=== PATIENT | male | born 1945 | race Caucasian/White ===

== ENCOUNTER → 2016-02-20 | Outpatient (CLI) | payer OTHER ==
[~2016-02-20] MED LIST: AMLO-110 PO; ASPCH81X PO; ATOR10TA88 PO; CARV25TA PO; CHOL100010 PO; CYAN100020 PO; LOSA100T26 PO; TERA5CAP PO
[2016-02-20 16:55] LABS: BLOOD UREA NITROGEN 13 mg/dl (7-18); BUN/CREATININE RATIO 12.9 (10-20); CALCIUM 9.4 mg/dl (8.5-10.1); CARBON DIOXIDE 24 mmol/L (21-32); CHLORIDE 109 mmol/L (98-107); GLUCOSE 109 mg/dl (70-99); POTASSIUM 4.5 mmol/L (3.5-5.1); SODIUM 143 mmol/L (136-145)
[2016-02-21 06:46] LABS: ESTIMATED AVERAGE GLUCOSE 97 mg/dl; HA1C FLAG Normal (Normal)
== END | disposition home or self-care (01) ==
LOC: C.LABBFT 16:21
PROVIDERS: ATTEND Internal Medicine
DX: R73.01 Impaired fasting glucose (principal); E53.8 Deficiency of other specified B group vitamins; E55.9 Vitamin D deficiency, unspecified

== ENCOUNTER → 2016-07-01 | Outpatient (CLI) | payer OTHER ==
[~2016-07-01] MED LIST changes: +ATOR10TA82 PO; -ATOR10TA88 PO; -LOSA100T26 PO; +LOSA100T33 PO
[2016-07-01 17:43] LABS: PROSTATE SPECIFIC ANTIGEN 1.53 ng/ml (0.000-4.000)
== END | disposition home or self-care (01) ==
LOC: C.LABBFT 11:11
PROVIDERS: ATTEND Physician Assistant Medical
DX: E78.5 Hyperlipidemia, unspecified (principal); N40.0 Benign prostatic hyperplasia without lower urinary tract symptoms

== ENCOUNTER → 2016-11-10 | Outpatient (CLI) | payer OTHER ==
[~2016-11-10] MED LIST changes: -ATOR10TA82 PO; +ATOR10TA88 PO; +LOSA100T26 PO; -LOSA100T33 PO
--- NOTE | 2016-11-10 10:43 | DIAGNOSTIC IMAGING REPORT ---
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 FINDINGS: Right testis: 3.9 x 2.5 x 3.4 cm. There are no intratesticular masses. Normal color flow. Small hydrocele. Dilated rete testes. There are few slightly complex extratesticular cysts with the dominant lesion measuring 4.8 x 3.5 x 4.2 cm. This favors a spermatocele. Left testis: 4.1 x 3.2 0.1 cm. There are no intratesticular masses. Normal color flow. Small hydrocele. Dilated rete testes. A few small epididymal head cysts with the largest measuring 1 cm. IMPRESSION: 1. Small bilateral hydroceles. 2. There are few complex right extratesticular cysts with the dominant lesion measuring 4.8 x 3.5 x 4.2 cm. This favors a spermatocele. Electronically signed by: Duc Fuentes M.D. 11/10/2016 10:41 AM Dictated Date/Time: 11/10/2016 10:38 AM
== END | disposition home or self-care (01) ==
LOC: C.ULTR 09:57
PROVIDERS: ATTEND Internal Medicine
DX: Q55.29 Other congenital malformations of testis and scrotum (principal); N43.3 Hydrocele, unspecified; N44.2 Benign cyst of testis

== ENCOUNTER → 2016-11-18 | Outpatient (CLI) | payer OTHER ==
[2016-11-18 13:06] LABS: URINE APPEARANCE CLEAR (CLEAR); URINE BILIRUBIN NEG (NEG); URINE COLOR YELLOW; URINE NITRITE NEG (NEG); URINE PH 6.5 (4.5-7.5); URINE SPECIFIC GRAVITY 1.014 (1.000-1.030); UROBILINOGEN NEG (NEG); ZZUR CULT IF INDIC CLEAN CATCH NO
[2016-11-18 13:18] LABS: MANUAL MICROSCOPIC REQUIRED? NO; REVIEW REQ? NO
== END | disposition home or self-care (01) ==
LOC: C.LABBFT 09:24
PROVIDERS: ATTEND Internal Medicine
DX: R35.0 Frequency of micturition (principal)

== ENCOUNTER → 2017-05-11 | Outpatient (CLI) | payer OTHER ==
[~2017-05-11] MED LIST changes: +ATOR10TA82 PO; -ATOR10TA88 PO; -LOSA100T26 PO; +LOSA100T33 PO
[2017-05-11 16:32] LABS: BASO % 0.3 %; BASO ABS # 0.02 K/uL (0-0.2); EOS % 2.5 %; EOS ABS # 0.15 K/uL (0-0.5); HEMATOCRIT 39.5 % (42-52); HEMOGLOBIN 13.9 g/dL (14.0-18.0); IG# 0.12 K/uL (0.00-0.02); LYMPH % 20.5 %; LYMPH ABS # 1.21 K/uL (1.2-3.4); MEAN CORPUSCULAR HEMOGLOBIN 35.5 pg (25-34); MEAN CORPUSCULAR HGB CONC 35.2 g/dl (32-36); MEAN PLATELET VOLUME 10.5 fL (7.4-10.4); NEUT % 57.7 %; NEUT ABS # 3.39 K/uL (1.4-6.5); PLATELET COUNT 165 K/uL (130-400); RED CELL DISTRIBUTION WIDTH CV 13.9 % (11.5-14.5); RED CELL DISTRIBUTION WIDTH SD 51.2 fL (36.4-46.3); WHITE BLOOD COUNT 5.89 K/uL (4.8-10.8)
[2017-05-11 16:48] LABS: ALBUMIN 3.4 gm/dl (3.4-5.0); ALT/SGPT 26 U/L (12-78); AST/SGOT 20 U/L (15-37); BLOOD UREA NITROGEN 17 mg/dl (7-18); CALCIUM 9.3 mg/dl (8.5-10.1); CARBON DIOXIDE 24 mmol/L (21-32); CREATININE 1.31 mg/dl (0.60-1.40); GLUCOSE 116 mg/dl (70-99); POTASSIUM 5.2 mmol/L (3.5-5.1); SODIUM 136 mmol/L (136-145)
[2017-05-11 16:59] LABS: ALKALINE PHOSPHATASE 93 U/L (45-117); CHOLESTEROL 170 mg/dl (0-200); LDL CHOLESTEROL CALCULATED 59 mg/dl; TOTAL PROTEIN 6.8 gm/dl (6.4-8.2)
[2017-05-12 06:38] LABS: HEMOGLOBIN A1C 4.8 % (4.5-5.6)
== END | disposition home or self-care (01) ==
LOC: C.LABBFT 11:44
PROVIDERS: ATTEND Internal Medicine
DX: E78.5 Hyperlipidemia, unspecified (principal); R73.01 Impaired fasting glucose; E53.8 Deficiency of other specified B group vitamins; E55.9 Vitamin D deficiency, unspecified

== ENCOUNTER → 2017-06-18 | Outpatient (CLI) | payer OTHER ==
[2017-06-18 12:36] LABS: BASO % 0.9 %; BASO ABS # 0.04 K/uL (0-0.2); EOS % 2.6 %; EOS ABS # 0.11 K/uL (0-0.5); HEMATOCRIT 35.5 % (42-52); HEMOGLOBIN 12.6 g/dL (14.0-18.0); IG# 0.03 K/uL (0.00-0.02); LYMPH % 29.8 %; LYMPH ABS # 1.26 K/uL (1.2-3.4); MEAN CELL VOLUME 100.9 fL (80-100); MEAN CORPUSCULAR HEMOGLOBIN 35.8 pg (25-34); MEAN CORPUSCULAR HGB CONC 35.5 g/dl (32-36); MEAN PLATELET VOLUME 10.1 fL (7.4-10.4); MONO % 9.7 %; MONO ABS # 0.41 K/uL (0.11-0.59); NEUT % 56.3 %; NEUT ABS # 2.38 K/uL (1.4-6.5); PLATELET COUNT 179 K/uL (130-400); RED CELL DISTRIBUTION WIDTH CV 14.1 % (11.5-14.5); RED CELL DISTRIBUTION WIDTH SD 51.5 fL (36.4-46.3); WHITE BLOOD COUNT 4.23 K/uL (4.8-10.8)
[2017-06-18 12:48] LABS: BLOOD UREA NITROGEN 17 mg/dl (7-18); CALCIUM 8.9 mg/dl (8.5-10.1); CARBON DIOXIDE 25 mmol/L (21-32); CREATININE 1.34 mg/dl (0.60-1.40); GLUCOSE 99 mg/dl (70-99); POTASSIUM 3.5 mmol/L (3.5-5.1); SODIUM 139 mmol/L (136-145)
== END | disposition home or self-care (01) ==
LOC: C.LABBFT 09:29
PROVIDERS: ATTEND Internal Medicine
DX: D64.9 Anemia, unspecified (principal)

== ENCOUNTER → 2017-06-29 | Outpatient (CLI) | payer OTHER ==
[2017-06-29 16:55] LABS: RETIC COUNT % 2.4 % (0.5-2.0)
== END | disposition home or self-care (01) ==
LOC: C.LABBFT 14:07
PROVIDERS: ATTEND Nurse Practitioner
DX: D64.9 Anemia, unspecified (principal)

== ENCOUNTER 2019-08-08 08:29 | Inpatient (IN) ==
[2019-07-17 12:31] LABS: Basophils # (auto) 0.04 K/uL (0-0.2); Basophils % (auto) 0.8 %; Eosinophils # (auto) 0.19 K/uL (0-0.5); Eosinophils % (auto) 3.9 %; Hemoglobin 12.3 g/dL (14.0-18.0); Immature Granulocytes # (auto) 0.02 K/uL (0.00-0.02); Immature Granulocytes % (auto) 0.4 %; Lymphocytes % (auto) 26.4 %; Mean Corpuscular Hemoglobin 34.3 pg (25-34); Mean Corpuscular Hgb Conc 34.2 g/dL (32-36); Mean Corpuscular Volume 100.3 fL (80-100); Mean Platelet Volume 10.6 fL (7.4-10.4); Monocytes % (auto) 10.2 %; Neutrophils # (auto) 2.87 K/uL (1.4-6.5); Neutrophils % (auto) 58.3 %; Platelet Count 179 K/uL (130-400); RDW Coefficient of Variation 12.8 % (11.5-14.5); RDW Standard Deviation 46.3 fL (36.4-46.3); Red Blood Count 3.59 M/uL (4.7-6.1); White Blood Count 4.92 K/uL (4.8-10.8)
[2019-07-17 12:33] LABS: Appearance Urine Clear (Clear); Bilirubin Urine Negative (Negative); Blood Urine Negative (Negative); Color Urine Yellow; Glucose Urine UA Negative (Negative); Ketones Urine Negative (Negative); Leukocyte Esterase Urine Negative (Negative); Nitrite Urine Negative (Negative); Protein Urine Negative (Negative); Specific Gravity Urine 1.013 (1.000-1.030); Urobilinogen Urine Negative (Negative); pH Urine 7.5 (4.5-7.5)
[2019-07-17 12:46] LABS: Partial Thromboplastin Ratio 0.9; Partial Thromboplastin Time 26.2 Seconds (21.0-31.0); Prothrombin Time 10.9 Seconds (9.0-12.0)
[2019-07-17 13:00] LABS: Albumin Level 3.1 gm/dl (3.4-5.0); Aspartate Aminotransferase 25 U/L (15-37); BUN Creatinine Ratio 16.6 (10-20); Blood Urea Nitrogen 18 mg/dl (7-18); Carbon Dioxide 24 mmol/L (21-32); Chloride 109 mmol/L (98-107); Cholesterol 135 mg/dl (0-200); Est GFR (African American) 77.1; Est GFR (Non-African American) 66.5; Glucose 103 mg/dl (70-99); Potassium 4.1 mmol/L (3.5-5.1); Sodium 139 mmol/L (136-145)
[2019-07-17 13:02] LABS: Alanine Aminotransferase 38 U/L (12-78); Albumin Globulin Ratio 0.9 (0.9-2); Alkaline Phosphatase 113 U/L (45-117); Bilirubin,Total 0.7 mg/dl (0.2-1); Chol HDL Ratio 2; Globulin 3.5 gm/dl (2.5-4.0); HDL Cholesterol 63 mg/dl; LDL Cholesterol Calculated 53 mg/dl; Total Protein 6.6 gm/dl (6.4-8.2); Triglycerides 95 mg/dl (0-150); VLDL Cholesterol 19 mg/dl
--- NOTE | 2019-08-01 13:47 | Anesthesiology Consultation ---
Date of Service August 01, 2019 Assessment & Plan (1) Encounter for pre-operative examination: COVID Status: As of 07/31 nurse assessment, patient denies travel to endemic area, known exposure/sick contacts, or symptoms of COVID19. Preoperative COVID19 testing to be completed on 08/02 @ [facility] [place]. Chart Review Chart Review: Acceptable Risk for Surgery and Patient NOT seen in Pre Admission Testing History Surgery Operation Date: 08/08/19 10:40 Proposed Procedures p Right Total Knee Arthroplasty - Clive Ruelas MD Height/Weight Height: 5 ft 9 in Weight: 83.915 kg Allergies Allergy/AdvReac Type Severity Reaction Status Date / Time No Known Allergies Allergy Verified 08/01/19 10:42 Medications Home Medications Medication Instructions Recorded Confirmed Last Taken aspirin 81 mg PO QAM 01/26/18 08/01/19 02/15/18 cholecalciferol (vitamin D3) 1,000 unit PO QPM 01/26/18 08/01/19 02/15/18 [Vitamin D3] cyanocobalamin (vitamin B-12) 500 mcg PO QAM 01/26/18 08/01/19 02/15/18 [Vitamin B-12] atorvastatin 10 mg PO QPM 04/14/19 08/01/19 Unknown finasteride 5 mg PO QAM 04/14/19 08/01/19 Unknown folic acid 1 mg PO QPM 04/14/19 08/01/19 Unknown carvedilol 25 mg tablet 25 mg PO BID #60 tab 04/27/19 08/01/19 Unknown terazosin 5 mg capsule 5 mg PO HS #90 cap 04/27/19 08/01/19 Unknown losartan-hydrochlorothiazide 1 tab PO QAM 08/01/19 08/01/19 Unknown Past Medical History Medical History Anemia Cardiac murmur Present x several years - AV sclerosis per 2018 ECHO Enlarged prostate without lower urinary tract symptoms (luts) (Acute) Folate deficiency HX History of asbestos exposure S - MILD , PCP MONITORS WITH YEARLY IMAGING. Hyperlipidemia Hyperparathyroidism Per PCP note- presumed parathyroid adenoma removed- no records. Calcium has been normal Hypertension Osteoarthritis Past Family History Family History Mother Lung disease Hypertension Cancer Father Lung disease Denies family history of Ovarian cancer Prostate cancer Myocardial infarction Breast cancer Colorectal cancer Past Surgical History Surgical History History of cataract surgery BOTH EYES History of colonoscopy S/P parathyroidectomy only removed the adenoma Social History Smoking Status: Former smoker tobacco type: cigarettes and smokeless tobacco Smoking cigarettes per day: 10 CIGS/DAY Do You Dip or Chew Tobacco: Yes (1 can/2 days (advised)) Smoking End Date: 1969 Hx Alcohol Use: Yes Alcohol type: beer and hard liquor alcohol intake frequency: 0-2 drinks per day Hx Substance Use: No substance use type: does not use Testing Laboratory Results 07/17/19 12:01 07/17/19 12:01 PT 10.9 Seconds (9.0-12.0) 07/17/19 12: INR 1.0 (0.9-1.1) 07/17/19 12:01 APTT 26.2 Seconds (21.0-31.0) 07/17/19 12:01 Urine Color Yellow 07/17/19 12:00 Urine Appearance Clear (Clear) 07/17/19 12:00 Urine pH 7.5 (4.5-7.5) 07/17/19 12:00 Ur Specific [place] 1.013 (1.000-1.030) 07/17/19 12:00 Urine Protein Negative (Negative) 07/17/19 12:00 Urine Glucose (UA) Negative (Negative) 07/17/19 12:00 Urine Ketones Negative (Negative) 07/17/19 12:00 Urine Nitrite Negative (Negative) 07/17/19 12:00 Ur Leukocyte Esterase Negative (Negative) 07/17/19 12:00 Blood Type AB Negative 07/17/19 12:01 Antibody Screen NEGATIVE 07/17/19 12:01 07/17/19 SODIUM: 139 POTASSIUM: 4.1 CHLORIDE: 109 CO2: 24 BUN: 18 CREATININE: 1.09 GLUCOSE: 103 Electrocardiogram Date: 04/17/19 Findings: + SB @ (56bpm) and + RBBB Chest X-Ray Date: 07/17/19 FINDINGS: Unchanged pleural and parenchymal change left lung base. This is considered chronic. Right lung is considered clear. Mid and upper left lung is clear. There is minimal apical pleural thickening bilaterally considered chronic. IMPRESSION: Chronic change. No acute process. No change compared to the prior study. Other Testing Echocardiogram Date: 11/11/17 EF: 60-65% LV Function: normal RWMA: + none Diastolic dysfunction- grade II. Mild to moderately dilated LA. Sclerotic AV without significant stenosis. No significant change from 08/26/2015.
--- NOTE | 2019-08-05 14:25 | History and Physical Report ---
DATE OF ADMISSION: 08/08/2019 CHIEF COMPLAINT: Bilateral knee pain and discomfort, right side greater than left. HISTORY OF PRESENT ILLNESS: The patient is a 73-year-old gentleman that I have been following for several years for bilateral knee pain and discomfort, right side a bit worse than the left. We have been treating him extensively with conservative care including medicines as well as injections. He has been putting off the knee surgery as he is taking care of an ill . His is now . He continues to be limited by significant knee pain in both knees, right side is a bit worse than the left. His knee feels unstable. It gives out intermittently. It swells up. The more he walks, the more it hurts. He is having difficulty getting around and maintaining an independent lifestyle and would like to proceed with knee replacement surgery. PAST MEDICAL HISTORY: Past medical history significant for: 1. Hypertension. 2. History of heart murmur. 3. BPH. 4. Chronic anemia. PAST SURGICAL HISTORY: Previous surgeries include: 1. Thyroid surgery. 2. Colonoscopy. ALLERGIES: None. CURRENT MEDICINES: 1. Aspirin 81 mg a day. 2. Atorvastatin 10 mg. 3. Carvedilol 25 mg twice. 4. Vitamin D3. 5. Vitamin B12. 6. Finasteride 5 mg in the morning. 7. Folic acid 1 mg in the evening. 8. Hydrochlorothiazide 25 mg in the morning. 9. Terazosin 5 mg at bedtime. SOCIAL HISTORY: A 73-year-old male. He is now a . He lives with his son. Does not smoke. FAMILY HISTORY: Noncontributory. REVIEW OF SYSTEMS: Negative for diabetes, neurologic problem, vascular problems, bleeding disorders. Denies any chest pain or shortness of breath. No history of DVT or PE. No known bleeding problems. PHYSICAL EXAMINATION: GENERAL: Reveals a healthy, pleasant, elderly male. Looks to be in pretty good health. HEENT: Benign. NECK: Supple, no lymphadenopathy. LUNGS: Clear to auscultation. HEART: Has regular rate and rhythm. ABDOMEN: Soft, nontender, nondistended. EXTREMITIES: Grossly neurovascularly intact except as follows. Examination of both knees reveals the patient walks with use of a cane. He has got varus alignment to both knees with varus thrust bilaterally with weightbearing. Range of motion of the right knee is about 5-10 degrees short of full extension to 110 degrees of flexion. He is tender with medial joint line with a small knee effusion with bony hypertrophy. Examination of the left knee reveals similar varus deformity. He is tender over the medial joint line. Range of motion 5-125. No instability. Small to moderate sized knee effusion. X-RAYS: X-rays of both knees have showed advanced bilateral knee DJD. The right side is quite a bit worse than the left. He has got complete loss of his medial joint space. He has got subchondral sclerosis and a little bit of fragmentation of his medial tibial plateau. He has got chondrocalcinosis. ASSESSMENT: A 73-year-old male with advanced bilateral knee degenerative joint disease. He would now like to proceed with right knee replacement. We had actually scheduled him for surgery in the past, but it was canceled due to COVID epidemic and he would now like to proceed. PLAN: We will take him to the Operating Room and do a right total knee replacement. The risks and benefits of this procedure were explained to the patient including but not limited to DVT, PE, , infection, neurological injury, vascular injury, bleeding problem, pain, limited range of motion, stiffness, failure to relieve symptoms, incomplete relief of symptoms, need for further surgery in future, fracture, leg length inequality, nerve palsy, incomplete relief of symptoms, etc. The patient understands and desires to proceed. Informed consent was obtained. He does have some lower extremity edema. I did talked about wearing JUANIS stockings and really trying to control his swelling postoperatively. As far as discharge plans, he is hoping to be discharged to home with some home health and his son's assistance who lives with him.
[~2019-08-08 08:29] MED LIST changes: +ACETAMINOPHEN 500 MG TAB PO SCH; -AMLO-110 PO; -ASPCH81X PO; -ATOR10TA82 PO; +BUPIVACAINE 0.25% 30 ML VIAL ONE; +BUPIVACAINE 0.5 % 5 MG/1 ML PF 10ML VIAL ONE; +BUPIVACAINE LIPOSOME/PF 266 MG, BUPIVACAINE/EPINEPHRINE 50 ML, SODIUM CHLORIDE 0.9% 30 ... INFIL SCH; -CARV25TA PO; +CEFAZOLIN 2000MG 2,000 MG/15 ML SYR IV SCH; -CHOL100010 PO; -CYAN100020 PO; +FAMOTIDINE 20 MG TAB PO SCH; +GABAPENTIN 300 MG CAP PO SCH; -LOSA100T33 PO; +LR 500ML BOLUS, THEN 15ML/HR IV SCH; +LR 60ML/HR IV SCH; +METOCLOPRAMIDE HCL 10 MG TABLET PO SCH; -TERA5CAP PO; +TRANEXAMIC ACID 1,000 MG **IV Intra-op IV SCH
--- NOTE | 2019-08-08 08:37 | History & Physical Bridge Note ---
Date of Service August 08, 2019 History & Physical Bridge Note I have examined the patient, reviewed the History & Physical and in the interval since the performance of the History & Physical I have noted the following changes of clinical significance: no changes noted
[2019-08-08] MEDS ORDERED: MoRPHine SULFATE PF 1 MG/ML 10 ML AMP/VIAL ONE (10:05)
[2019-08-08] MEDS ORDERED: MIDAZOLAM HCL 1 MG/ML 2ML VIAL ONE (10:05)
[2019-08-08] MEDS ORDERED: LIDOCAINE HCL 2% 2 ML VIAL/AMP(20MG/ML) INFIL ONE (10:06)
[2019-08-08] MEDS ORDERED: PROPOFOL IV EMULSION 10 MG/ML 20 ML VIAL IV ONE ×2 (10:06→12:08)
[2019-08-08] MEDS ORDERED: fentaNYL citrate 100 MCG/2 ML VIAL IV PRN (10:19)
[2019-08-08] MEDS ORDERED: ATROPINE SULFATE 0.1 MG/ML 10ML SYR IV PRN (10:19)
[2019-08-08] MEDS ORDERED: ePHEDrine sulfate 50 MG/ML AMP IV PRN (10:19)
[2019-08-08] MEDS ORDERED: ONDANSETRON INJ 2 MG/ML 2 ML VIAL IV PRN ×2 (10:19→14:24)
[2019-08-08] MEDS ORDERED: BUPIVACAINE/EPINEPHRINE 0.25% 1:200,000 30 ML VIAL ONE (10:49)
[2019-08-08] MEDS ORDERED: BUPIVACAINE LIPOSOME 1.3% 266 MG/20 ML VIAL ONE (10:50)
[2019-08-08] MEDS ORDERED: SODIUM CHLORIDE 0.9% PF 50 ML VIAL ONE (10:50)
[2019-08-08] MEDS ORDERED: BACITRACIN INJ 50,000 UNIT VIAL ONE (10:50)
[2019-08-08] MEDS ORDERED: ePHEDrine sulfate 50 MG/ML SYR ONE (12:04)
--- NOTE | 2019-08-08 12:45 | Post Operative Brief Note ---
PG Immediate Post Op with CF Date of Surgery August 08, 2019 Pre & Post Diagnosis Operation Date: 08/08/19 10:40 Pre-Op Diagnosis: Right Knee Degnerative Joint Disease Post-Op Diagnosis: Right Knee Degnerative Joint Disease I identified the patient and participated in the time-out.: Yes Procedure Operation Date: 08/08/19 10:40 Actual Procedures p Right Total Knee Arthroplasty(Right) - Clive Ruelas MD Surgeon Clive Ruelas MD Data Entry Manager [facility], [facility] Estimated Blood Loss 50 Findings Consistent with Post-Op Diagnosis Fluids 1400 cc Specimens Specimen Description: A. Right knee -bone and tissue Drains Hutson Catheter Anesthesia Type Spinal MAC Complications none Disposition Accompanied Patient To Recovery: No Disposition: Recovery Room
--- NOTE | 2019-08-08 13:10 | XRay Report ---
RIGHT KNEE 2 VIEWS History: Right total knee arthroplasty. Degenerative arthritis. Postop. FINDINGS: The patient is status post a right total knee arthroplasty. The hardware is intact. No frac ture or dislocation. Skin hermila are in place. IMPRESSION: Right total knee arthroplasty. No evidence for hardware complication. ACT 112: Negative or not required by law. Electronically signed by: Duc Fuentes M.D. 08/08/2019 1:08 PM
--- NOTE | 2019-08-08 13:12 | Operative Report ---
Post Operative Report Pre & Post Diagnosis Operation Date: 08/08/19 10:40 Pre-Op Diagnosis: Right Knee Degnerative Joint Disease Post-Op Diagnosis: Right Knee Degnerative Joint Disease I identified the patient and participated in the time-out.: Yes Procedure Operation Date: 08/08/19 10:40 Actual Procedures p Right Total Knee Arthroplasty(Right) - Clive Ruelas MD Surgeon Clive Ruelas MD Bookmaker Map [facility], [facility] Estimated Blood Loss 50 Findings Consistent with Post-Op Diagnosis Operative findings revealed extensive grade 4 [id number] disease in all 3 compartments with eburnation in all 3 compartments. He had a fixed varus deformity to his knee with destruction of the posterior medial tibial plateau. Moderate to large knee joint effusion. Osteophytes in all 3 compartments. Fluids 1400 cc. Specimens Right knee sent for pathology. Drains None. Anesthesia Type Spinal MAC Complications none Disposition Accompanied Patient To Recovery: No Disposition: Recovery Room Indications Patient is 73-year-old gentleman is a long history of bilateral knee pain discomfort right side quite a bit worse than the left. I been treating it conservatively over the years. This became less successful over time. He was caring for an ill so he is put this off for long time. Conservative care failed and patient now elected proceed with total knee arthroplasty. Description of Procedure Operative implants consist of: 1 Biomet Vanguard size 65 right posterior by femoral component. 2. Biomet size 75 tibial tray. 3. 10 mm posterior box polyethylene insert. 4. 31 x 8 all poly-patella. Patient was taken to the operating identified and placed on the operating table supine position protectors were properly padded. IV antibiotics arrived by anesthesia team. A spinal anesthetic and abductor canal block had provided in t he holding area. Hutson catheter was placed in sterile fashion. Right thigh tourniquet was then placed in the right lower extremities and prepped draped in usual sterile fashion. The right leg was elevated and exsanguinated with use of an Esmarch and turns placed at 300 mmHg. An anterior approach to the right knee was then performed to longitudinal incision centered over the patella. Sharp dissection got through subcutaneous tissue down to level the extensor mechanism. A medial parapatellar arthrotomy incision was made. Some subperiosteal dissection was carried out medially. The fat pad was resected from each patella tendon. Lateral patellofemoral ligament was released. The patella was subluxated laterally and the knee was flexed. Lateral patellofemoral ligament was released. The ACL was chronically absent. The PCL was released from the distal femur and the tibia subluxate anteriorly. The external tibial alignment jig was then placed in the interface the tibia and adjusted 16 mm medially. The tibial cut was made essentially flush with the most efficient aspect of the posterior medial tibial plateau. Tibia was then sized to a size 75. Some osteophytes were taken off medial and posterior medially. Attention drawn the femur. The distal femur was held with a sharp drill bit intramedullary canal was suction. A right 6 degree valgus cutting guide was placed but distal femoral cutting block was pinned in place. Distal femoral cut was made to take an additional 3 mm of bone off distal femur. The femur was then sized to a size 65. It sized exactly to a 65. The AP cutting block was pinned parallel to the epicondylar axis which was 3 degrees of external rotation. The anterior cut, anterior chamfer, posterior cut, posterior chamfer cuts were made. Box cutting guide was placed in just slight lateral box cut was made. The knee was flexed. The remnants of the medial lateral menisci were excised. The osteophytes were taken off the posterior aspect the femur. A trial femoral component was placed for the tibial tray was pinned in maximum external rotation the drill and stem punch were used to create defect in proximal to for the tibial tray. The knee was then trialed the 10 mm insert fit most appropriately. Attention drawn the patella. The patella was cleaned of all soft tissue. Patella thickness measured 22 mm in thickness was cut down to 13. Was sized to a size 31 patella. Locals were drilled for 31 patella. Lateral osteophytes removed. Patella button was placed. Knee was taken through range of motion patella tracked nicely with no thumbs test. Attention drawn to placing the permanent components. All trial components were removed. A bone plug was placed in the distal femur limit blood loss. A double batch [place] G cement was mixed. A Biomet Vanguard size 65 right posterior by femoral component, size 75 tibial tray, 10 mm posterior box polyethylene insert, and a 31 x 8 all poly-patella then cement in place. Knees brought out in full extension total cement hardened. Final cement check was then performed. The pericapsular tissues were injected with total 100 cc of combination of 20 of Exparel, 30 cc normal saline, 50 cc of quarter percent Marcaine with epinephrine. Patient did receive 1 g tranexamic acid per the tech was then let down for turn time 50 minutes. Hemostasis assured use electrocautery. Extensor mechanism then closed with combination 1 PDS suture #1 Vicryl suture in [id number] fashion. The extensor mechanism checked found to be intact with subcutaneous tissue then closed with 2 Dexon suture in a buried interrupted fashion. Skin was closed skin hermila. Leg was then cleaned dried a sterile dressing composed Xeroform, 4 x 4's, sterile cast padding, Ronnie bandage were applied. Patient then transferred to the recovery room in stable condition. Patient tolerated procedure well no complications. I attest to the content of the Intraoperative Record and any orders documented therein. Any exceptions are noted below.
[2019-08-08] MEDS ORDERED: MAGNESIUM HYDROXIDE SUSP 30 ML UDC PO PRN (14:24)
[2019-08-08] MEDS ORDERED: bisacodyL 10 MG SUPP PR PRN (14:24)
[2019-08-08] MEDS ORDERED: ALUMINUM/MAGNESIUM SUSP 30 ML UDC PO PRN (14:24)
[2019-08-08] MEDS ORDERED: TAMSULOSIN HCL 0.4 MG CAP PO PRN (14:24)
[2019-08-08] MEDS ORDERED: METOCLOPRAMIDE HCL INJ 5 MG/ML 2 ML VIAL IV PRN (14:24)
[2019-08-08] MEDS ORDERED: chlordiazePOXIDE HCl 25 MG CAP PO PRN (14:24)
[2019-08-08] MEDS ORDERED: TRAMADOL HCL 50 MG TABLET PO PRN (14:24)
[2019-08-08] MEDS ORDERED: HYDROmorphone INJ 0.5 MG/0.5 ML SYR IV PRN (14:24)
[2019-08-08] MEDS ORDERED: NALOXONE HCL 0.4 MG/1 ML VIAL/CARP IV PRN (14:24)
--- NOTE | 2019-08-08 15:24 | Anesthesiology Progress Note ---
Date of Service August 08, 2019 Anesthesia Post Procedure Vital Signs Vital Signs: Temp Pulse Pulse Resp BP BP Pulse Ox 08/08/19 14:59 36.4 C L 55 L 16 151/83 H 96 08/08/19 14:18 36.4 C L 49 L 14 152/78 H 98 08/08/19 14:00 36.3 C L 49 L 13 140/75 98 08/08/19 13:45 45 L 12 152/60 H 98 08/08/19 13:30 56 L 14 146/72 H 98 08/08/19 13:20 50 L 13 128/66 98 08/08/19 13:10 43 L 15 144/66 H 97 08/08/19 13:00 45 L 16 119/66 98 08/08/19 12:52 36.2 C L 57 L 16 114/67 98 08/08/19 09:21 36.6 C 52 L 20 133/74 98 08/08/19 08:43 47 L 18 116/61 99 Transfer of Care Handoff Completed per policy Notes Mental Status: alert / awake / arousable and participated in evaluation Patient Amnestic to Procedure: Yes Nausea / Vomiting: adequately controlled Pain: adequately controlled Airway Patency, RR, SpO2: stable & adequate BP & HR: stable & adequate Hydration State: stable & adequate Neuraxial Anesthesia: was administered and sensory block is resolving Anesthetic Complications: no major complications apparent and Pt Satisfied with anesthetic care
--- NOTE | 2019-08-08 15:56 | Progress Notes ---
DATE: 08/08/2019 SUBJECTIVE: A 73-year-old gentleman postop from right knee replacement. He is doing well. Really not having any pain. No chest pain or shortness of breath. Not feeling dizzy or lightheaded. OBJECTIVE: VITAL SIGNS: Temperature 36.4. Vital signs stable. GENERAL: Shows a pleasant elderly male. He is sitting up in bed and eating dinner. Looks pretty comfortable. LUNGS: Clear to auscultation. HEART: Has a regular rate and rhythm. ABDOMEN: Soft, nontender, nondistended. EXTREMITIES: Grossly neurovascularly intact except as follows: Examination of the right leg reveals the leg to be well aligned. Dressing is clean, dry, and intact. He can just slightly dorsiflex and plantarflex his foot as his nerve function is slowly returning. He has got brisk refill. X-RAYS: X-rays of the right knee from today were reviewed from the recovery room. It shows a cemented posterior stabilized total knee arthroplasty. Components looked to be in good position. No signs of problems. ASSESSMENT: A 73-year-old gentleman postoperative from right knee replacement, doing well. Pain is controlled. His nerve function is just returning as the spinal is wearing off. He does have a pretty significant alcohol history intake. PLAN: 1. DVT prophylaxis including thigh-high TEDs, SCDs, and aspirin twice a day. 2. PT/OT. Weight bear as tolerated. Right total knee protocol. 3. Pain control, doing pretty well with current pain regimen. We will have to adjust his meds as his spinal wears off. 4. IV antibiotics x24 hours. 5. Alcohol history. We will put him on some DT prophylaxis and I consulted medicine to assist in medical management. 6. Disposition: Plan to discharge to home with some home health once adequately recovered. He lives with his son who will help in his care.
[2019-08-08] MEDS: ACETAMINOPHEN 500 MG TAB PO SCH ×2 (16:04→20:38)
--- NOTE | 2019-08-08 16:13 | Hospitalist Consultation ---
Date of Consultation August 08, 2019 Assessment & Plan (1) Post-operative state: s/p R TKA 08/07 DVT proph, pain control per primary Monitor for acute blood loss (2) BPH (benign prostatic hyperplasia): Continue home finasteride, terazosin (3) Hypertension: Continue home losartan/hctz (4) Hyperlipidemia: Continue home statin (5) Macrocytic anemia: With folate deficiency - continue folate replacement. Baseline hgb appears to be around 12 (6) Alcohol use: Patient reports he drinks 2 beers per day. He has never had difficulty stopping drinking and has never withdrawn. Chlordiazepoxide initiated per surgery q8h History of Present Illness Attending Physician: Clive Ruelas MD History of Present Illness Mr. Ernst is s/p TKA today with Dr. Ruelas. He is feeling well, sitting up in bed eating a meal at the time of my assessment. He has no complaints. Pmhx: hld, bph, htn, hyperparathyroidism (with apparent surgical correction per outpatient notes) Social: retired aviation electrician, , lives with son, chews 1 can snuff every 2 days for 60 years, quit smoking age 24, drinks 2 beers per day. Family: father of black lung, mother of cancer Allergies Allergy/AdvReac Type Severity Reaction Status Date / Time No Known Allergies Allergy Verified 08/08/19 08:55 Home Medications Home Medications Medication Instructions Recorded Confirmed Type aspirin 81 mg PO QAM 01/26/18 08/08/19 History cholecalciferol (vitamin D3) 1,000 unit PO QPM 01/26/18 08/08/19 History [Vitamin D3] cyanocobalamin (vitamin B-12) 500 mcg PO QAM 01/26/18 08/08/19 History [Vitamin B-12] atorvastatin 10 mg PO QPM 04/14/19 08/08/19 History finasteride 5 mg PO QAM 04/14/19 08/08/19 History folic acid 1 mg PO QPM 04/14/19 08/08/19 History carvedilol 25 mg tablet 25 mg PO BID #60 tab 04/27/19 08/08/19 Rx terazosin 5 mg capsule 5 mg PO HS #90 cap 04/27/19 08/08/19 Rx losartan-hydrochlorothiazide 1 tab PO QAM 08/01/19 08/08/19 History Patient History Medical History Anemia Cardiac murmur Present x several years - AV sclerosis per 2018 ECHO Enlarged prostate without lower urinary tract symptoms (luts) (Acute) Folate deficiency HX History of asbestos exposure - MILD , PCP MONITORS WITH YE[facility]. Hyperlipidemia Hyperparathyroidism Per PCP note- presumed parathyroid adenoma removed- no records. Calcium has been normal Hypertension Osteoarthritis Surgical History History of cataract surgery BOTH EYES History of colonoscopy S/P parathyroidectomy only removed the adenoma Family History Mother Lung disease Hypertension Cancer Father Lung disease Denies family history of Ovarian cancer Prostate cancer Myocardial infarction Breast cancer Colorectal cancer Social History (Updated 06/29/19 @ 13:02 by Suzanne Leon MA) Preferred Language: Greenlandic Communication Ability: Effective Visual Impairment: No Limitations Hearing Ability: Normal [employer] Assistant Principal Required: No Beliefs That Will Affect Care: None marital status: / Current Living Situation: Family Current Living Situation Comment: SON LIVES W/ PT current occupational status: retired current occupation: aviation electrician Feels Safe at Home: Yes Safety Concerns: Feels Safe At This Time Smoking Status: Former smoker Tobacco Type: cigarettes and smokeless tobacco ; Age Started Using Tobacco: 13 ; Age Quit Using Tobacco: 23 ; packs per day: 0.5 ; Cigarettes Per Day: 10 CIGS/DAY ; Do You Dip or Chew Tobacco: Yes (1 can/2 days (advised)) ; Smoking End Date: 1969 ; Number of Years Since Quit: 50 ; Second Hand Exposure: Yes (hx) ; Tobacco Cessation Education Requested by Patient: No Hx Alcohol Use: Yes Alcohol type: beer and hard liquor Hx Substance Use: No Childhood Exposure to Second-Hand Smoke: No Dental Care, Regularly: No Physical Activity Frequency: Daily Review of Systems Constitutional: no fever and no body aches Respiratory: no cough and no dyspnea Cardiovascular: no chest pain and no palpitations Gastrointestinal: no abdominal pain, no nausea and no vomiting Genitourinary: no dysuria Musculoskeletal: no joint pain and no stiffness Integumentary: no rash Physical Exam Physical Exam: General: no distress Eyes: normal inspection, PERLL Respiratory: chest non tender, clear to auscultation, normal breath sounds, no respiratory distress, no accessory muscle use Cardiac: regular rate and rhythm, no rub or gallop, no murmur, no edema, no jvd GI/: active bowel sounds, no abd pain or tenderness, soft, non distended Extremities: normal range of motion, normal strength, non tender Neuro/Psych: alert and oriented x 3, normal mood and affect Skin: normal color, dry Results & Data Results & Data ([facility]) Vital Signs (Past 12 Hours) Vital Signs Temp Pulse Pulse Resp BP BP Pulse Ox 08/08/19 15:31 36.4 C L 51 L 16 143/82 H 97 08/08/19 14:59 36.4 C L 55 L 16 151/83 H 96 08/08/19 14:18 36.4 C L 49 L 14 152/78 H 98 08/08/19 14:00 36.3 C L 49 L 13 140/75 98 08/08/19 13:45 45 L 12 152/60 H 98 08/08/19 13:30 56 L 14 146/72 H 98 08/08/19 13:20 50 L 13 128/66 98 08/08/19 13:10 43 L 15 144/66 H 97 08/08/19 13:00 45 L 16 119/66 98 08/08/19 12:52 36.2 C L 57 L 16 114/67 98 08/08/19 09:21 36.6 C 52 L 20 133/74 98 08/08/19 08:43 47 L 18 116/61 99 PG Care Time/CCT Total # of Minutes Spent Total Time Spent with Patient: Total time spent is greater than 50% in coordination of care (as documented) at patient's floor/unit and/or counseling patient: Coding Level of Care Code 22008 Inpt Consult Level 4 Diagnoses Post-operative state Z98.890 BPH (benign prostatic hyperplasia) N40.0 Hypertension I10 Hyperlipidemia E78.5 Macrocytic anemia D53.9 Alcohol use Z72.89
[2019-08-08] MEDS: SODIUM CHLORIDE 0.9% 1000ML 1,000 ML IV SCH (16:42)
[2019-08-08] MEDS: FERROUS GLUCONATE 324 MG TAB PO SCH (16:43)
[2019-08-08] MEDS: ASCORBIC ACID 500 MG TAB PO SCH (16:44)
[2019-08-08] MEDS: KETOROLAC TROMETHAMINE 15 MG/ML VIAL IV SCH ×2 (18:11→23:31)
[2019-08-08] MEDS ORDERED: TRANEXAMIC ACID / 0.7% NACL 1,000 MG/100 ML BAG IV SCH (18:49)
[2019-08-08] MEDS: DOCUSATE SODIUM 100 MG CAP PO SCH (20:36)
[2019-08-08] MEDS: CEFAZOLIN 2000MG 2,000 MG/15 ML SYR IV SCH (20:36)
[2019-08-08] MEDS: SENNA 8.6 MG TAB PO SCH (20:37)
[2019-08-08] MEDS: ATORVASTATIN 10 MG TAB PO SCH (20:38)
[2019-08-08] MEDS: CHOLECALCIFEROL 1,000 UNITS 25 MCG TAB PO SCH (20:38)
[2019-08-08] MEDS: FOLIC ACID 1 MG TAB PO SCH (20:39)
[2019-08-08] MEDS: TERAZOSIN HCL 5 MG CAP PO SCH (20:40)
[2019-08-08] MEDS: carvediloL 25 MG TAB PO SCH (20:41)
[2019-08-09] MEDS: SODIUM CHLORIDE 0.9% 1000ML 1,000 ML IV SCH (04:12)
[2019-08-09] MEDS: CEFAZOLIN 2000MG 2,000 MG/15 ML SYR IV SCH (04:58)
[2019-08-09] MEDS: KETOROLAC TROMETHAMINE 15 MG/ML VIAL IV SCH (04:59)
[2019-08-09] MEDS: ACETAMINOPHEN 500 MG TAB PO SCH ×3 (05:49→20:38)
[2019-08-09 06:19] LABS: Hematocrit (blood only) 30.8 % (42-52); Hemoglobin 10.4 g/dL (14.0-18.0); Mean Corpuscular Hemoglobin 33.8 pg (25-34); Mean Corpuscular Hgb Conc 33.8 g/dL (32-36); Mean Platelet Volume 10.1 fL (7.4-10.4); Platelet Count 111 K/uL (130-400); RDW Coefficient of Variation 12.8 % (11.5-14.5); RDW Standard Deviation 46.7 fL (36.4-46.3); Red Blood Count 3.08 M/uL (4.7-6.1); White Blood Count 4.74 K/uL (4.8-10.8)
[2019-08-09 06:49] LABS: Calcium 7.8 mg/dl (8.5-10.1); Creatinine Clr Calc Pharmacy 41.8 ml/min; Est GFR (African American) 50.4; Est GFR (Non-African American) 43.5; Potassium 3.9 mmol/L (3.5-5.1)
--- NOTE | 2019-08-09 06:57 | Orthopedic Progress Note ---
Date of Service August 09, 2019 Assessment & Plan (1) Status post total right knee replacement: He is doing well this morning. We will continue PT/OT. He is weightbearing as tolerated. Pain is controlled. He will continue JUANIS stockings, SCDs, and aspirin for DVT prophylaxis. His creatinine is elevated at 1.55 so stopped his Toradol. Subjective 73-year-old male now postop day 1 from right total knee arthroplasty. He is doing well this morning. Really is not having much knee pain. Denies any chest pain or shortness of breath. No lightheadedness or dizziness. He was up yesterday walking some. Physical Exam Physical Exam: He is alert and oriented. No distress. Exam of the right leg, dressing is clean, dry, and intact. He is able dorsiflex and plantarflex appropriately. He is neurovascular intact. He is able do a straight leg raise. Results & Data ([facility]) Vital Signs (Past 12 Hours) Vital Signs Temp Pulse Resp BP Pulse Ox 08/09/19 04:10 36.7 C 66 16 139/69 96 08/08/19 23:40 36.4 C L 55 L 16 121/68 96 08/08/19 18:58 36.4 C L 51 L 16 121/71 100 PG Care Time/CCT Total # of Minutes Spent Total Time Spent with Patient: Total time spent is greater than 50% in coordination of care (as documented) at patient's floor/unit and/or counseling patient: Coding Level of Care Code None Diagnoses Status post total right knee replacement Z96.651
[2019-08-09] MEDS: ASCORBIC ACID 500 MG TAB PO SCH ×2 (08:33→16:38)
[2019-08-09] MEDS: MULTIVITAMIN TAB PO SCH (08:34)
[2019-08-09] MEDS: DOCUSATE SODIUM 100 MG CAP PO SCH ×2 (08:34→20:39)
[2019-08-09] MEDS: THIAMINE HCL 100 MG TAB PO SCH (08:34)
[2019-08-09] MEDS: FINASTERIDE 5 MG TAB PO SCH (08:35)
[2019-08-09] MEDS: FERROUS GLUCONATE 324 MG TAB PO SCH ×2 (08:35→16:38)
[2019-08-09] MEDS: CYANOCOBALAMIN 500 MCG TABLET (VITAMIN B-12) PO SCH (08:35)
[2019-08-09] MEDS: carvediloL 25 MG TAB PO SCH ×2 (08:41→20:38)
[2019-08-09] MEDS ORDERED: LOSARTAN/HCTZ 50/12.5MG TAB PO SCH (09:00)
[2019-08-09] MEDS: LACTATED RINGER'S 1,000 ML IV SCH ×2 (09:06→19:09)
[2019-08-09] MEDS: ASPIRIN 81 MG ECTAB PO SCH ×2 (09:31→20:38)
--- NOTE | 2019-08-09 12:18 | Hospitalist Progress Note ---
Date of Service August 09, 2019 Assessment & Plan (1) Post-operative state: s/p R TKA 08/07 DVT proph, pain control per primary (2) Acute blood loss anemia: Hgb decreased by about 2g following surgery Continue to monitor (3) ERICKSON (acute kidney injury): Creatinine 1.5 today - hold hctz/losartan Will give LR x2L @ 100 ml/hr Recheck prp am (4) BPH (benign prostatic hyperplasia): Continue home finasteride, terazosin (5) Hypertension: Hold home losartan/hctz - patient with mild hypotension today and ERICKSON (6) Hyperlipidemia: Continue home statin (7) Macrocytic anemia: With folate deficiency - continue folate replacement. Baseline hgb appears to be around 12 (8) Alcohol use: Discussed alcohol use with patient again today. He really never has more than 2 drinks per day and does not drink every day, maybe 4 times per week. It is unlikely that he is at risk for detox with this moderate alcohol intake so would recommend discontinuing Librium. Admission and Anticipated Discharge Date Admission Date: August 08, 2019 Supervising Physician Co-Signing Physician Notes I supervised Sepideh Salas NP on this patient's care. I examined the patient today independently of her. I discussed the plan of care with her with the plan being as written in her note except for any following changes/exceptions: None. Pain controlled today. Resting comfortably. Will monitor kidney function. Unless worsening tomorrow, he is medically stable; discharge when ready from surgical standpoint. Subjective Mr Ernst is ambulating his room on his own with his walker. He did have an episode of mild hypotension this morning but remained asymptomatic. His pain is under control. ROS Constitutional: no chills, aches, sweats or fever Respiratory: no sob,cough, sputum, or wheezing Cardiac: no chest pain, palpitations, edema, orthopnea or lightheadedness GI: no abdominal pain, nausea, vomiting, diarrhea or constipation : no dysuria or hesitancy Extremities: no joint pain or weakness Skin: no rash All other systems reviewed and negative Physical Exam Physical Exam: General: no distress Eyes: normal inspection, PERLL Respiratory: chest non tender, clear to auscultation, normal breath sounds, no respiratory distress, no accessory muscle use Cardiac: regular rate and rhythm, no rub or gallop, no murmur, no edema, no jvd GI/: active bowel sounds, no abd pain or tenderness, soft, non distended Extremities: normal range of motion, normal strength, non tender Neuro/Psych: alert and oriented x 3, normal mood and affect Skin: normal color, dry Results & Data Results & Data ([facility]) Vital Signs (Past 12 Hours) Vital Signs Temp Pulse Resp BP BP Pulse Ox 08/09/19 11:21 36.5 C 58 L 16 109/62 99 08/09/19 08:40 61 94/58 L 97 08/09/19 07:01 36.7 C 52 L 16 118/69 97 08/09/19 04:10 36.7 C 66 16 139/69 96 PG Care Time/CCT Total # of Minutes Spent Total Time Spent with Patient: Total time spent is greater than 50% in coordination of care (as documented) at patient's floor/unit and/or counseling patient: Coding Level of Care Code 01504 Subseq Hosp Care Lvl 3 Diagnoses Post-operative state Z98.890 Acute blood loss anemia D62 ERICKSON (acute kidney injury) N17.9 BPH (benign prostatic hyperplasia) N40.0 Hypertension I10 Hyperlipidemia E78.5 Macrocytic anemia D53.9 Alcohol use Z72.89
[2019-08-09] MEDS: TERAZOSIN HCL 5 MG CAP PO SCH (20:37)
[2019-08-09] MEDS: SENNA 8.6 MG TAB PO SCH (20:37)
[2019-08-09] MEDS: FOLIC ACID 1 MG TAB PO SCH (20:38)
[2019-08-09] MEDS: ATORVASTATIN 10 MG TAB PO SCH (20:39)
[2019-08-09] MEDS: CHOLECALCIFEROL 1,000 UNITS 25 MCG TAB PO SCH (20:39)
[2019-08-10] MEDS: ACETAMINOPHEN 500 MG TAB PO SCH (05:56)
[2019-08-10 06:04] LABS: Hemoglobin 10.1 g/dL (14.0-18.0); Mean Corpuscular Hemoglobin 33.4 pg (25-34); Mean Corpuscular Hgb Conc 33.7 g/dL (32-36); Mean Corpuscular Volume 99.3 fL (80-100); Mean Platelet Volume 10.3 fL (7.4-10.4); Platelet Count 110 K/uL (130-400); RDW Standard Deviation 46.9 fL (36.4-46.3); Red Blood Count 3.02 M/uL (4.7-6.1); White Blood Count 6.59 K/uL (4.8-10.8)
[2019-08-10 06:34] LABS: BUN Creatinine Ratio 22.5 (10-20); Calcium 8.1 mg/dl (8.5-10.1); Creatinine Clr Calc Pharmacy 50.6 ml/min; Est GFR (African American) 63.5; Est GFR (Non-African American) 54.8; Potassium 3.5 mmol/L (3.5-5.1)
--- NOTE | 2019-08-10 09:05 | Progress Notes ---
DATE: 08/10/2019 SUBJECTIVE: A 73-year-old gentleman postop day 2 from right knee replacement. He is doing pretty well. His pain is controlled. He is concerned he is taking so many medicines that he was a bit confused last night. Feeling better this morning. No chest pain or shortness of breath. Not feeling dizzy or lightheaded. OBJECTIVE: VITAL SIGNS: Temperature 37.1. Vital signs stable. GENERAL: Pleasant elderly male. He is lying in bed. He is awake, alert and appropriate. He looks comfortable. EXTREMITIES: Examination of the right leg reveals the leg to be well aligned. Dressing is clean, dry, and intact. He can dorsiflex and plantarflex his foot appropriately. He is neurologically intact. ASSESSMENT: A 73-year-old gentleman postop day 2 from right knee replacement, doing pretty well. Pain is controlled. He is neurologically intact. Hemoglobin is stable. PLAN: 1. DVT prophylaxis including thigh-high TEDs, SCDs, and aspirin twice a day. 2. PT/OT. Weight bear as tolerated. Right total knee protocol. 3. Pain control, doing well with current pain regimen. 4. Disposition: Plan to discharge to home with home health later today and his son's assistance.
[2019-08-10] MEDS: ASCORBIC ACID 500 MG TAB PO SCH (09:30)
[2019-08-10] MEDS: FERROUS GLUCONATE 324 MG TAB PO SCH (09:30)
[2019-08-10] MEDS: MULTIVITAMIN TAB PO SCH (09:30)
[2019-08-10] MEDS: THIAMINE HCL 100 MG TAB PO SCH (09:31)
[2019-08-10] MEDS: carvediloL 25 MG TAB PO SCH (09:31)
[2019-08-10] MEDS: FINASTERIDE 5 MG TAB PO SCH (09:31)
[2019-08-10] MEDS: DOCUSATE SODIUM 100 MG CAP PO SCH (09:31)
[2019-08-10] MEDS: ASPIRIN 81 MG ECTAB PO SCH (09:31)
[2019-08-10] MEDS: CYANOCOBALAMIN 500 MCG TABLET (VITAMIN B-12) PO SCH (09:31)
--- NOTE | 2019-08-10 11:22 | Hospitalist Progress Note ---
Date of Service August 10, 2019 Assessment & Plan (1) Post-operative state: s/p R TKA 08/07 DVT proph, pain control per primary (2) Acute blood loss anemia: Hgb decreased by about 2g following surgery - stable today (3) ERICKSON (acute kidney injury): Resolved Resume hctz/losartan tomorrow Given LR x2L @ 100 ml/hr 08/08 (4) BPH (benign prostatic hyperplasia): Continue home finasteride, terazosin (5) Hypertension: Resume losartan/hctz tomorrow as ERICKSON has resolved (6) Hyperlipidemia: Continue home statin (7) Macrocytic anemia: With folate deficiency - continue folate replacement. Baseline hgb appears to be around 12 (8) Alcohol use: Patient really never has more than 2 drinks per day and does not drink every day, maybe 4 times per week. It is unlikely that he is at risk for detox with this moderate alcohol - dc'd Librium. Mr. Ernst is looking forward to discharge today. He is medically ready for discharge. Admission and Anticipated Discharge Date Admission Date: August 09, 2019 Subjective Mr. Ernst was a bit confused over the night but is feeling like his self today and is appropriate in conversation. He has no complaints except for loose stools which he attributes to the stool softeners. ROS Constitutional: no chills, aches, sweats or fever Respiratory: no sob,cough, sputum, or wheezing Cardiac: no chest pain, palpitations, edema, orthopnea or lightheadedness GI: no abdominal pain, nausea, vomiting, diarrhea or constipation : no dysuria or hesitancy Extremities: no joint pain or weakness Skin: no rash All other systems reviewed and negative Physical Exam Physical Exam: General: no distress Eyes: normal inspection, PERLL Respiratory: chest non tender, clear to auscultation, normal breath sounds, no respiratory distress, no accessory muscle use Cardiac: regular rate and rhythm, no rub or gallop, systolic murmur, no edema, no jvd GI/: active bowel sounds, no abd pain or tenderness, soft, non distended Extremities: normal range of motion, normal strength, non tender Neuro/Psych: alert and oriented x 3, normal mood and affect Skin: normal color, dry Results & Data Results & Data ([facility]) Vital Signs (Past 12 Hours) Vital Signs Temp Pulse Resp BP BP Pulse Ox 08/10/19 09:33 64 118/67 97 08/10/19 07:58 37.1 C 63 16 119/62 98 PG Care Time/CCT Total # of Minutes Spent Total Time Spent with Patient: Total time spent is greater than 50% in coordination of care (as documented) at patient's floor/unit and/or counseling patient: Coding Level of Care Code 32912 Subseq Hosp Care Lvl 2 Diagnoses Post-operative state Z98.890 Acute blood loss anemia D62 ERICKSON (acute kidney injury) N17.9 BPH (benign prostatic hyperplasia) N40.0 Hypertension I10 Hyperlipidemia E78.5 Macrocytic anemia D53.9 Alcohol use Z72.89
--- NOTE | 2019-08-14 10:16 | Discharge Summary ---
Date of Service August 14, 2019 Admission HPI Per Admitting Provider Documented in the H&P Admission Exam (Per Admitting) Constitutional Documented in the H&P Discharge Data Consultations 08/08/19 14:24 Consult Case Management - Discharge Planning Routine Consult Hospitalist Routine Procedures Performed Operation Date: 08/08/19 10:40 Actual Procedures p Right Total Knee Arthroplasty(Right) - Clive Ruelas MD Hospital Course (1) Status post total right knee replacement: 74-year-old male admitted on 08/08/2019 underwent total knee replacement. He tolerated the procedure well and there were no complications. He is transferred to the PACU postoperatively and later to the orthopedic for further care. He was given Ancef for antibiotic prophylaxis. He was given JUANIS stockings, SCDs, aspirin for DVT prophylaxis. Hemoglobin, hematocrit, and vital signs are monitored during his hospital stay remained stable. He not requiring blood transfusions. There were no complications. Postoperative day 2 he is tolerating a regular diet, pain is controlled with oral pain medicine, and he is participating in physical therapy. On postop day 2 was discharged home set up with home health services. He is given printed discharge instructions as well as new prescriptions for extra strength Tylenol, aspirin, tramadol. Continue physical therapy. He is weightbearing as tolerated. JUANIS stockings. Follow-up proximately 2 weeks postop or sooner if there are any problems or concerns. Coding Level of Care Code None Diagnoses Status post total right knee replacement Z96.651
== END 2019-08-10 14:39 | disposition home health service (06) | DRG 470 ==
LOC: 3E 08:29 → ASU 08:29